=== PATIENT | female | born 1960 | race Hispanic/Latino ===

== ENCOUNTER 2019-03-19 09:45 | Emergency (ER) | payer OTHER, SELFPAY ==
[~2019-03-19 09:45] MED LIST: FERS325 PO
[2019-03-19] MEDS ORDERED: HYDROCODONE/ACETAMINOPHEN 10/325 MG TAB ONE (10:06)
== END 2019-03-19 10:36 | disposition home or self-care (01) ==
LOC: EDH 09:45
DX: S40.011A Contusion of right shoulder, initial encounter (principal); Z90.49 Acquired absence of other specified parts of digestive tract; W18.39XA Other fall on same level, initial encounter; Y93.89 Activity, other specified; Y92.488 Other paved roadways as the place of occurrence of the external cause; Y99.8 Other external cause status
CPT/HCPCS: 73030

== ENCOUNTER 2020-03-09 10:36 | Inpatient (IN) | payer OTHER, SELFPAY ==
[~2020-03-09] VITALS: Ht 162.6 cm; Wt 75.0 kg
[2020-03-09 11:20] LABS: BASOPHILS % (AUTO) 0.3 % (0.0-5.0); CREATININE 0.8 mg/dL (0.5-1.5); EOSINOPHILS % (AUTO) 2.1 % (0.0-8.0); HEMATOCRIT 38.6 % (36-48); LYMPHOCYTES % (AUTO) 39.7 % (21.0-51.0); MEAN CORPUSCULAR HEMOGLOBIN 30.6 pg (27.0-33.0); MEAN CORPUSCULAR HGB CONC 33.9 g/dL (32.0-36.0); MEAN CORPUSCULAR VOLUME 90.2 fL (79-99); MONOCYTES % (AUTO) 11.9 % (3.0-13.0); NEUTROPHILS % (AUTO) 45.7 % (40.0-77.0); PLATELET COUNT (AUTO) 189 K/uL (130-400); RED BLOOD CELL COUNT(AUTO) 4.28 MIL/uL (4.00-5.50); RED CELL DISTRIBUTION WIDTH 12.3 % (11.0-15.5); WHITE BLOOD COUNT (AUTO) 6.1 K/uL (4.8-10.8)
[2020-03-09 11:35] LABS: ALBUMIN 3.6 g/dL (3.5-5.0); BILIRUBIN,TOTAL 0.3 mg/dL (0.2-1.0); TOTAL PROTEIN, SERUM 7.9 g/dL (6.0-8.3)
[2020-03-09 12:15] LABS: INR 0.95 (0.85-1.15); PARTIAL THROMBOPLASTIN TIME 25.1 SEC (26.3-35.5); PROTHROMBIN TIME 10.3 SEC (9.6-11.6)
[2020-03-09 15:53] LABS: APPEARANCE,URINE Clear (CLEAR); BILIRUBIN,URINE Negative (NEGATIVE); COLOR,URINE Yellow (YELLOW); GLUCOSE, URINE (UA) Negative (NEGATIVE); KETONES,URINE Negative (NEGATIVE); LEUKOCYTE ESTERASE ,URINE Small (NEGATIVE); NITRATE,URINE Negative (NEGATIVE); OCCULT BLOOD,URINE Negative (NEGATIVE); PH,URINE 6.5 (5.0-8.0); PROTEIN,URINE Negative (NEGATIVE); UROBILINOGEN,URINE 0.2 mg/dL (0.2-1.0)
[2020-03-09] MEDS: LACTATED RINGERS 1000ML 1,000 ML IV SCH (15:54)
[2020-03-09 16:00] LABS: AMPHET/METH SCREEN,URINE NEGATIVE (NEGATIVE); BARBITURATE SCREEN, URINE NEGATIVE (NEGATIVE); BENZODIAZEPINES SCREEN,URINE NEGATIVE (NEGATIVE); CANNABINOID SCREEN,URINE NEGATIVE (NEGATIVE); COCAINE SCREEN,URINE NEGATIVE (NEGATIVE); OPIATE SCREEN,URINE NEGATIVE (NEGATIVE); PHENCYCLIDINE SCREEN,URINE NEGATIVE (NEGATIVE)
[2020-03-09] MEDS ORDERED: ACETAMINOPHEN 325 MG TAB PO PRN ×2 (16:00)
[2020-03-09] MEDS ORDERED: GUAIFENESIN-DM 200/20 MG 10 ML PO PRN (16:00)
[2020-03-09] MEDS ORDERED: DiphenhydrAMINE HCL 50 MG/ML VIAL IV PRN (16:00)
[2020-03-09] MEDS ORDERED: LACTULOSE 20 GM/30 ML UDCUP PO PRN (16:00)
[2020-03-09] MEDS ORDERED: ONDANSETRON HCL 4 MG/2 ML VIAL IV PRN (16:00)
[2020-03-09] MEDS ORDERED: MAG HYDROX/AL HYDROX/SIMETH ES 30 ML SUSP UDCUP PO PRN (16:00)
[2020-03-09] MEDS ORDERED: DIPHENHYDRAMINE HCL 25 MG CAPSULE PO PRN (16:00)
[2020-03-09] MEDS ORDERED: NITROGLYCERIN 0.4 MG SL TAB SL PRN (16:00)
[2020-03-09 16:22] LABS: BACTERIA,URINE Few /HPF (None Seen); SQUAMOUS EPITHELIAL CELL,UR Moderate /HPF (0-2)
[2020-03-09] MEDS ORDERED: IOHEXOL-350 75 ML VIAL IV ONE (16:32)
[2020-03-09] MEDS ORDERED: LACTATED RINGERS 1000ML 1,000 ML IV ONE (17:13)
[2020-03-09] MEDS ORDERED: ASPIRIN 325 MG TABLET ONE (17:13)
[2020-03-09 17:49] LABS: CRP QUANTITATIVE 9.9 mg/L (0.00-9.0)
[2020-03-10] MEDS: LACTATED RINGERS 1000ML 1,000 ML IV SCH ×3 (01:54→22:39)
[2020-03-10] MEDS ORDERED: LACTATED RINGERS 1000ML 1,000 ML IV ONE (03:23)
[2020-03-10 04:21] LABS: BASOPHILS % (AUTO) 0.3 % (0.0-5.0); EOSINOPHILS % (AUTO) 2.3 % (0.0-8.0); HEMATOCRIT 36.9 % (36-48); LYMPHOCYTES % (AUTO) 43.3 % (21.0-51.0); MEAN CORPUSCULAR HEMOGLOBIN 30.3 pg (27.0-33.0); MEAN CORPUSCULAR HGB CONC 33.9 g/dL (32.0-36.0); MEAN CORPUSCULAR VOLUME 89.3 fL (79-99); MONOCYTES % (AUTO) 12.5 % (3.0-13.0); NEUTROPHILS % (AUTO) 41.6 % (40.0-77.0); PLATELET COUNT (AUTO) 176 K/uL (130-400); RED BLOOD CELL COUNT(AUTO) 4.13 MIL/uL (4.00-5.50); RED CELL DISTRIBUTION WIDTH 12.2 % (11.0-15.5); WHITE BLOOD COUNT (AUTO) 6.2 K/uL (4.8-10.8)
[2020-03-10 04:30] LABS: CREATININE 0.8 mg/dL (0.5-1.5)
[2020-03-10] MEDS: FAMOTIDINE 20MG TAB 20 MG TAB PO SCH ×3 (09:00→20:02)
[2020-03-10] MEDS: ASPIRIN 325MG EC TAB 325 MG TABLET.DR PO SCH ×2 (09:00→11:14)
[2020-03-10 09:12] VITALS: BP 134/74
[2020-03-10 10:55] LABS: LACTATE DEHYDROGENASE 254 U/L (81-234)
[2020-03-10 11:55] VITALS: BP 116/60
--- NOTE | 2020-03-10 16:48 | NUR ---
DCP CM met with pt discussed dc plans. Pt is independent prior to admission, lives at home with spouse. Denies any equipments/services. Feels safe to go back home, still works and drives ,spouse able to assist with transportation and needs as necessary. DC plan to home once stable. CM to cont to follow up. Pt is a selfpay, [facility] assisting, given [facility] resources packet. Addendum: 03/10/20 at 1649 by LEELA JAMISON LVN CM Amended: Links added.
[2020-03-10 17:04] VITALS: BP 114/58
[2020-03-10] MEDS: VALACYCLOVIR HCL 500 MG TABLET PO SCH (20:02)
[2020-03-10] MEDS: PREDNISONE 20 MG TABLET PO SCH (20:02)
[2020-03-10 20:08] VITALS: BP 132/71
[2020-03-11 00:08] VITALS: BP 121/62
[2020-03-11 04:08] VITALS: BP 125/64
[2020-03-11 05:22] LABS: BASOPHILS % (AUTO) 0.2 % (0.0-5.0); HEMATOCRIT 39.1 % (36-48); LYMPHOCYTES % (AUTO) 20.9 % (21.0-51.0); MEAN CORPUSCULAR HEMOGLOBIN 30.9 pg (27.0-33.0); MEAN CORPUSCULAR HGB CONC 34.3 g/dL (32.0-36.0); MEAN CORPUSCULAR VOLUME 90.1 fL (79-99); NEUTROPHILS % (AUTO) 76.5 % (40.0-77.0); PLATELET COUNT (AUTO) 198 K/uL (130-400); RED BLOOD CELL COUNT(AUTO) 4.34 MIL/uL (4.00-5.50); RED CELL DISTRIBUTION WIDTH 12.1 % (11.0-15.5); WHITE BLOOD COUNT (AUTO) 5.1 K/uL (4.8-10.8)
[2020-03-11 05:43] LABS: CREATININE 0.8 mg/dL (0.5-1.5); POTASSIUM 4.4 mmol/L (3.5-5.1)
[2020-03-11 09:07] VITALS: BP 114/68
[2020-03-11] MEDS: PREDNISONE 20 MG TABLET PO SCH (10:51)
[2020-03-11] MEDS: FAMOTIDINE 20MG TAB 20 MG TAB PO SCH (10:51)
[2020-03-11] MEDS: ASPIRIN 325MG EC TAB 325 MG TABLET.DR PO SCH (10:52)
[2020-03-11] MEDS: VALACYCLOVIR HCL 500 MG TABLET PO SCH (10:52)
[2020-03-11 11:47] VITALS: BP 133/77
--- NOTE | 2020-03-11 14:54 | NUR ---
D/C PAPERWORK COMPLETE, D/C INSTRUCTIONS GIVEN TO PATIENT ON AFTER CARE WITH [facility] [facility] AND NECESSARY EXERCISE AND EYE PROTECTION WITH LUBRICANT AND EYE PATCH; I HAVE ALSO INSTRUCTED PT TO SELF QUARANTINE TILL HER RESULTS OF COVID TEST COME BACK AND IF POSITIVE SHE NEEDS TO QUARANTINE FOR 2 WEEKS AND IF IN RESPIRATORY DISTRESS TO RETURN TO THE ED; PT ASKED IS SHE COULD GO BACK TO WORK AND STATED SHE WAS A COOK, I TOLD HER NO NOT UNTIL SHE TEST COVID NEGATIVE; IV ACCESS REMOVED; PT GIVEN SCRIPT FOR STEROIDS AND I HAVE EXPLAINED TO HER HOW TO TAKE THEM IN A DECREASING STRENGTH DOSAGE AND ALSO SCRIPT FOR ANTIVIRAL MEDICATION; PT STATES UNDERSTANDING OF ALL INFORMATION. HER SON IS HERE TO PICK HER UP.
== END 2020-03-11 15:21 | disposition home or self-care (01) | DRG 74 ==
LOC: EDH 10:36 → EDHIP 10:37 → UNDOADMIN 15:54 → EDHIP 15:54 → 3DH 03-10 07:02
PROVIDERS: ADMIT Family Medicine; ATTEND Family Medicine
DX: G51.0 Bell's palsy (principal); R29.701 NIHSS score 1; Z20.828 Contact with and (suspected) exposure to other viral communicable diseases; Z87.891 Personal history of nicotine dependence; Z90.49 Acquired absence of other specified parts of digestive tract
CPT/HCPCS: 36415; 70450; 70496; 70498; 70551; 71045; 71250; 80048; 80053; 80061; 80305; 81001; 82550; 82728; 83615; 84145; 84443; 84484; 85025; 85378; 85610; 85651; 85730; 86140; 87633; 93005; 99291; G0378; J7120; Q9967; U0003

== ENCOUNTER 2020-03-25 19:39 | Emergency (ER) | payer OTHER, SELFPAY | END 2020-03-25 21:18 | disposition home or self-care (01) | LOC: EDH 19:39 | DX: G51.0 Bell's palsy (principal); R51 Headache; Z98.890 Other specified postprocedural states; Z90.49 Acquired absence of other specified parts of digestive tract; Z87.891 Personal history of nicotine dependence ==

== ENCOUNTER 2024-05-19 15:47 | Emergency (ER) | payer SELFPAY ==
[~2024-05-19] VITALS: Ht 162.6 cm; Wt 76.2 kg
[2024-05-19 16:38] LABS: ADD UA MICROSCOPIC NO; APPEARANCE,URINE CLEAR (CLEAR); BILIRUBIN,URINE NEGATIVE (NEGATIVE); COLOR,URINE COLORLESS (YELLOW); GLUCOSE, URINE (UA) NEGATIVE (NEGATIVE); KETONES,URINE NEGATIVE (NEGATIVE); LEUKOCYTE ESTERASE ,URINE NEGATIVE Leu/uL (NEGATIVE); NITRATE,URINE NEGATIVE (NEGATIVE); OCCULT BLOOD,URINE NEGATIVE (NEGATIVE); PH,URINE 6.5 (5.0-8.0); PROTEIN,URINE NEGATIVE (NEGATIVE); UROBILINOGEN,URINE 0.2 mg/dL (0.2-1.0)
[2024-05-19 16:44] LABS: BASOPHILS # (AUTO) 0.04 K/uL (0.00-0.20); BASOPHILS % (AUTO) 0.5 % (0.0-5.0); EOSINOPHILS % (AUTO) 2.6 % (0.0-8.0); HEMATOCRIT 38.8 % (36-48); IMMATURE GRANULOCYTE ABSOLUTE 0.02 K/uL (0-1); LYMPHOCYTES # (AUTO) 3.2 K/uL (1.0-4.8); LYMPHOCYTES % (AUTO) 41.1 % (21.0-51.0); MEAN CORPUSCULAR HEMOGLOBIN 30.5 pg (27.0-33.0); MEAN CORPUSCULAR HGB CONC 33.2 g/dL (32.0-36.0); MEAN CORPUSCULAR VOLUME 91.7 fL (79-99); MONOCYTES # (AUTO) 0.6 K/uL (0.1-1.0); MONOCYTES % (AUTO) 8.2 % (3.0-13.0); NEUTROPHILS # (AUTO) 3.6 K/uL (1.8-7.7); NEUTROPHILS % (AUTO) 47.3 % (40.0-77.0); PLATELET COUNT (AUTO) 180 K/uL (130-400); RED BLOOD CELL COUNT(AUTO) 4.23 MIL/uL (4.00-5.50); RED CELL DISTRIBUTION WIDTH 12.3 % (11.0-15.5); WHITE BLOOD COUNT (AUTO) 7.7 K/uL (4.8-10.8)
[2024-05-19 16:51] LABS: CREATININE 0.8 mg/dL (0.5-1.0)
[2024-05-19 16:53] LABS: INR 0.97 (0.85-1.15); PROTHROMBIN TIME 10.5 SEC (9.6-11.6)
[2024-05-19 16:55] LABS: PARTIAL THROMBOPLASTIN TIME 24.1 SEC (26.3-35.5)
[2024-05-19 17:23] LABS: B-TYPE NATRIURETIC PEPTIDE 81 pg/mL (0-100)
[2024-05-19 19:37] VITALS: BP 147/73; PULSE 65; RESP 18; TEMP 98.5; O2SAT 97
== END 2024-05-19 19:43 | disposition short-term general hospital (02) ==
LOC: EDH 15:47
DX: I63.9 Cerebral infarction, unspecified (principal); M19.90 Unspecified osteoarthritis, unspecified site; Z90.49 Acquired absence of other specified parts of digestive tract
CPT/HCPCS: 36415; 70450; 71045; 80048; 81003; 82550; 82948; 83721; 83880; 84484; 85025; 85610; 85730; 93005